=== PATIENT | female | born 1955 | race Caucasian/White ===

== ENCOUNTER 2018-03-27 07:22 | Day surgery (SDC) | payer OTHER ==
[~2018-03-27 07:22] MED LIST: XYLOCAINE 1% HCL 20 ML MDV ONE; Xylocaine 1% Vial 30 ML PF IJ ONE
[2018-03-27] MEDS ORDERED: Ketamine HCl 50 MG/ML IJ ONE (07:23)
[2018-03-27] MEDS ORDERED: DIPRIVAN 200 MG/20 ML IV ONE (07:23)
--- NOTE | 2018-03-27 07:32 | HP ---
DATE OF SURGERY: 03/27/2018 ANTICIPATED PROCEDURE: Port placement. HISTORY OF PRESENT ILLNESS: The patient has diagnosis of rectal cancer requiring access and presents for such. PAST MEDICAL HISTORY: ALLERGIES: NONE. MEDICATIONS: Proventil, Synthroid, Spiriva, Breo, Ambien. PAST SURGICAL HISTORY: Rectal cancer. SOCIAL HISTORY: Negative. FAMILY HISTORY: Negative. REVIEW OF SYSTEMS: Chronic obstructive pulmonary disease, emphysema. PHYSICAL EXAMINATION: VITAL SIGNS: Normal. CHEST: Clear. COR: Regular. IMPRESSION: Patient needs port for rectal cancer. PLAN: Port placement.
[2018-03-27] MEDS ORDERED: Lactated Ringers 1,000 ML IV SCH (08:00)
[2018-03-27] MEDS ORDERED: Versed 2 MG/2 ML Injection IV ONE (08:25)
[2018-03-27] MEDS ORDERED: CEFAZOLIN 2 GM-D5W BAG** 2 GM/50 ML ML IV SCH (08:30)
--- NOTE | 2018-03-27 10:36 | XRAY ---
4 seconds fluoroscopy time in surgery for port placement confirmed by Dr. Wallace French.
--- NOTE | 2018-03-27 11:09 | XRAY ---
Indication: Port-A-Cath placement. Intraoperative fluoroscopy was provided for 4 seconds. Portable chest demonstrates right Port-A-Cath with tip in the distal SVC without pneumothorax. Minimal bibasilar infiltrates versus atelectasis. Correlate with intraoperative findings/report.
[2018-03-27 11:30] VITALS: BP 130/73; PULSE 75; O2SAT 97
--- NOTE | 2018-03-28 09:36 | OP ---
SURGERY DATE/TIME: 03/27/2018 0949 PREOPERATIVE DIAGNOSIS: Inadequate access for chemotherapy. Rectal cancer. POSTOPERATIVE DIAGNOSIS: Inadequate access for chemotherapy. Rectal cancer. PROCEDURE: Tunnel port with fluoroscopic C-arm guidance. SURGEON: Wallace French M.D. ANESTHESIA: MAC. COMPLICATIONS: None. CONDITION: Stable. INDICATION: A patient requiring access. DESCRIPTION OF PROCEDURE: MAC sedation. Excellent anesthesia was present. Routine prep and drape. Time out per formed. Venipuncture obtained right subclavian. Catheter was placed. Port was placed at 23 cm. Good aspiration of low pressure venous blood. Flushed with heparinized saline. Secured with 3-0 Prolene, 3-0 Vicryl, 4-0 Vicryl and Steri-Strips. The patient tolerated the procedure satisfactorily.
== END 2018-03-27 11:32 | disposition home or self-care (01) ==
LOC: SDC 07:22
PROVIDERS: ATTEND Surgery
DX: C20 Malignant neoplasm of rectum (principal)
CPT/HCPCS: 71045; 77001; 94250; J0690; J1642; J2001; J2250; J2704; L0625

== ENCOUNTER 2019-06-05 06:50 | Emergency (ER) | payer MEDICARE, OTHER ==
[2019-06-05] MEDS ORDERED: Sodium Chloride 0.9% 1000 ML 1,000 ML IV STA (07:12)
[2019-06-05] MEDS ORDERED: Reglan 10 MG/2 ML IV ONE (07:12)
[2019-06-05] MEDS ORDERED: Reglan 10 MG/2 ML ONE (07:30)
[2019-06-05] MEDS ORDERED: Sodium Chloride 0.9% 1000 ML 1,000 ML ONE ×2 (07:31→08:57)
[2019-06-05 07:47] LABS: Hematocrit 42.6 % (35-47); Hemoglobin 14.3 gm/dl (12.0-16.0); Mean Cell Volume 94.7 fl (78-100); Mean Corpuscular Hemoglobin 31.8 pg (26-32); Mean Corpuscular Hgb Concent. 33.6 g/dl (32-36); Mean Platelet Volume 9.5 fl (6-9.5); Platelet Count 243 K/mm3 (150-450); White Blood Count 20.5 K/mm3 (4.0-10.5)
[2019-06-05 08:09] LABS: BAND 16 % (0.0-2.0); Lymphocytes 8 % (24-44); Monocyte 10 % (0.0-12.0); Neutrophils 66 % (36.0-66.0); Platelet Estimate NORMAL (NORMAL); Total Cells Counted 100
[2019-06-05 08:10] LABS: Absolute Neutrophil Ct (ANC) 17.06 (1.4-6.9)
[2019-06-05 08:11] LABS: Appearance CLEAR (CLEAR); Bacteria RARE /HPF (NEGATIVE); Bilirubin NEGATIVE (NEGATIVE); Blood NEGATIVE Ery/ul (0-5); Glucose NEGATIVE (NEGATIVE); Ketones NEGATIVE (NEGATIVE); Leukocyte Esterase TRACE (NEGATIVE); Nitrite NEGATIVE (NEGATIVE); Protein,Urine Dip NEGATIVE (Negative); Urobilinogen NEGATIVE mg/dL (0-1)
[2019-06-05 08:13] LABS: INR 1.23 (0.8-3.0); PROTIME 13.9 SECONDS (9.95-12.35)
[2019-06-05 08:19] LABS: ALBUMIN 4.1 g/dL (3.5-5.0); ALKALINE PHOSPHATASE 215 U/L (38-126); AMYLASE 55 U/L (30-110); ANION GAP 11.8 MEQ/L (5-15); BLOOD UREA NITROGEN 11 mg/dL (7-17); CHLORIDE 106 mmol/L (98-107); Calcium 9.6 mg/dL (8.4-10.2); Carbon Dioxide 25 mmol/L (22-30); Creatinine 1 0.79 mg/dL (0.52-1.04); Glucose 102 mg/dL (74-106); LIPASE 55 U/L (23-300); Potassium 3.4 mmol/L (3.5-5.1); SGOT/AST 23 U/L (14-36); SGPT/ALT 17 U/L (0-35); SODIUM 139 mmol/L (137-145); Total Protein 7.7 g/dL (6.3-8.2)
[2019-06-05 08:26] LABS: INFLUENZA A NEGATIVE (NEGATIVE); INFLUENZA B NEGATIVE (NEGATIVE); RESPIRATORY SYNCTIAL VIRUS NEGATIVE (Negative)
[2019-06-05] MEDS ORDERED: Sodium Chloride 0.9% 1000 ML 1,000 ML IV SCH (09:15)
[2019-06-05 09:19] LABS: 027 TOX PROD PRESUMPTIVE NEGATIVE (NEGATIVE); TOXIGENIC C. DIFF ORG POSITIVE (NEGATIVE)
--- NOTE | 2019-06-05 09:20 | XRAY ---
Indication: Diarrhea. Multiple contiguous axial images obtained through the abdomen and pelvis using 80 cc Isovue 370 contrast only. Comparison: None Lung bases demonstrates bibasilar fibrosis/scarring and a few calcified granulomas. No infiltrate or effusion. Heart is not enlarged. Noncontrasted stomach and bowel loops appear nonobstructed. Normal appendix. Mild fluid small and large bowel loops with mild wall thickening and fluid leveling favoring enterocolitis. Intact rectal anastomosis. No free fluid/air. Left cysts, largest 1.6 cm lower pole. 1.3 cm uterine calcified fibroid. Remaining liver, gallbladder, pancreas, spleen, adrenal glands, kidneys, ureters, bladder, and uterus appear unremarkable. Mild scattered aortoiliac calcifications. No AAA or pathologic retroperitoneal lymphadenopathy. Osseous structures intact with minimal degenerative changes throughout the spine. Impression: 1. Mild fluid distended small/large bowel loops with wall thickening and fluid leveling favoring enterocolitis. 2. Left renal cysts, calcified uterine fibroid, and evidence for old granulomatous disease. 3. Remaining CT abdomen/pelvis with contrast exam is negative.
[2019-06-05 09:33] VITALS: BP 110/68
--- NOTE | 2019-06-05 09:43 | ERPHSYRPT ---
- History of Present Illness Time Seen by Provider: 06/05/19 07:10 Patient Subjective Stated Complaint: Diarrhea Triage Nursing Assessment: Patient brought back to ED via w/c and transferred to bed per self. Patient A+O 3. Patient's skin pink, warm and dry. Patient complains of diarrhea x 30 times in a 12 hour period. Abdomen soft and round with BS X 4. Patient denies pain or discomofort. Patient states she is currently taking Augmentin 875/125mg with few days left. Physician History: patient is a 64-year-old white female is known Augmentin for bronchitis 20 hours ago started having liquid stools approximately 30 and 12 hours. She denies any pain no gross blood yellow mucousy foul smelling stools. Timing/Duration: today Activities at Onset: none Quality: cramping, pressure Allergies/Adverse Reactions: No Known Drug Allergies Allergy (Verified 06/05/19 06:55) Home Medications: Albuterol 2.5 mg/3 ml Neb [Proventil 2.5 mg/3 ml Neb] 2.5 mg IH Q6HPRN PRN 03/26/18 [History] Albuterol Sulfate [Proventil Hfa] 6.7 gm IH Q4HPRN PRN 03/26/18 [History] Fluticasone/Vilanterol [Breo Ellipta 100-25 Mcg INH] 1 each IH DAILY 03/26/18 [ History] Levothyroxine Sodium 112 Mcg [Synthroid 112 Mcg] 100 mcg PO DAILY 03/26/18 [History] Tiotropium [place] Inhaler [Spiriva 18 Mcg/Cap Inhaler] 1 puff IH DAILY [History] Gabapentin [Neurontin] 300 mg PO TID 11/27/18 [History] Hydroxychloroquine Sulfate [Plaquenil] 200 mg PO BID 02/24/19 [History] Hx Influenza Vaccination/Date Given: Yes Hx Pneumococcal Vaccination/Date Given: No Immunizations Up to Date: Yes - Review of Systems Constitutional: No Fever, No Chills Eyes: No Symptoms Ears, Nose, & Throat: No Symptoms Respiratory: No Cough, No Dyspnea Cardiac: No Chest Pain, No Edema, No Syncope Abdominal/Gastrointestinal: Diarrhea, No Abdominal Pain, No Nausea, No Vomiting Genitourinary Symptoms: No Dysuria Musculoskeletal: No Back Pain, No Neck Pain Skin: No Rash Neurological: No Dizziness, No Focal Weakness, No Sensory Changes Psychological: No Symptoms Endocrine: No Symptoms All Other Systems: Reviewed and Negative - Past Medical History Pertinent Past Medical History: Yes Neurological History: No Pertinent History ENT History: No Pertinent History Cardiac History: No Pertinent History Respiratory History: COPD, Emphysema Endocrine Medical History: Hypothyroidism Musculoskeletal History: Rheumatoid Arthritis GI Medical History: Polyps History: No Pertinent History Psycho-Social History: No Pertinent History Female Reproductive Disorders: No Pertinent History Other Medical History: colon cancer with lymphnodes, 2 L nc as needed - Past Surgical History Past Surgical History: Yes Neuro Surgical History: No Pertinent History Cardiac: No Pertinent History Respiratory: No Pertinent History Gastrointestinal: Colon Resection Genitourinary: Other Musculoskeletal: No Pertinent History Female Surgical History: Tubal Ligation, Other Other Surgical History: Bladder sling, right ovary removed, polyps removed from throat. - Social History Smoking Status: Never smoker Exposure to second hand smoke: No Drug Use: none Patient Lives Alone: No - Female History Hx Last Menstrual Period: menopausal Hx Now: No - Nursing Vital Signs Nursing Vital Signs: Initial Vital Signs Pulse Rate 78 06/05/19 06:57 Respiratory Rate 20 06/05/19 06:57 Blood Pressure 124/79 06/05/19 06:57 O2 Sat by Pulse Oximetry 91 L 06/05/19 06:57 Pain Scale Pain Intensity 0 - Physical Exam General Appearance: no apparent distress, moderate distress, alert Eye Exam: PERRL/EOMI, eyes nml inspection Ears, Nose, Throat Exam: normal ENT inspection, pharynx normal, moist mucous membranes Neck Exam: normal inspection, non-tender, supple, full range of motion Respiratory Exam: normal breath sounds, lungs clear, No respiratory distress Cardiovascular Exam: regular rate/rhythm, normal heart sounds Gastrointestinal/Abdomen Exam: soft, tenderness, No mass Back Exam: normal inspection, normal range of motion, No CVA tenderness, No vertebral tenderness Extremity Exam: normal inspection, normal range of motion, pelvis stable Neurologic Exam: alert, oriented x 3, cooperative, normal mood/affect, nml cerebellar function, sensation nml, No motor deficits Skin Exam: normal color, warm, dry SpO2: 95 Ordered Tests: Active Orders 24 hr Category Date Time Status IV Insertion STAT Care 06/05/19 07:12 Active ABDOMEN AND PELVIS W CONTRAST [CT] Stat Exams 06/05/19 07:13 Completed AMYLASE Stat Lab 06/05/19 07:30 Completed BLOOD CULTURE Stat Lab 06/05/19 07:30 Received CBC W DIFF Stat Lab 06/05/19 07:30 Completed CMP Stat Lab 06/05/19 07:30 Completed LIPASE Stat Lab 06/05/19 07:30 Completed Lactic Acid Stat Lab 06/05/19 07:55 Completed Manual Differential NC Stat Lab 06/05/19 07:30 Completed Occult Blood, Other Screening Stat Lab 06/05/19 08:15 Completed PROTIME WITH INR Stat Lab 06/05/19 07:30 Completed UA W/RFX UR CULTURE Stat Lab 06/05/19 07:13 Completed Medication Summary Generic Name Dose Route Start Last Admin Trade Name Freq PRN Reason Stop Dose Admin Sodium Chloride 1,000 mls @ 999 mls/hr 06/05/19 09:15 06/05/19 09:03 Sodium Chloride 0.9% 1000 Ml IV 07/05/19 09:14 999 mls/hr .Q1H1M ALYSSA Administration Discontinued Medications Generic Name Dose Route Start Last Admin Trade Name Freq PRN Reason Stop Dose Admin Sodium Chloride 1,000 mls @ 999 mls/hr 06/05/19 07:12 06/05/19 08:51 Sodium Chloride 0.9% 1000 Ml IV 06/05/19 08:12 Infused .Q1H1M STA Infusion Sodium Chloride Confirm 06/05/19 07:31 Sodium Chloride 0.9% 1000 Ml Administered 06/05/19 07:32 Dose 1,000 mls @ ud .ROUTE .STK-MED ONE Sodium Chloride Confirm 06/05/19 08:57 Sodium Chloride 0.9% 1000 Ml Administered 06/05/19 08:58 Dose 1,000 mls @ ud .ROUTE .STK-MED ONE Metoclopramide HCl 10 mg 06/05/19 07:12 06/05/19 07:33 Reglan 10 Mg/2 Ml IV 06/05/19 07:13 10 mg STAT ONE Administration Metoclopramide HCl Confirm 06/05/19 07:30 Reglan 10 Mg/2 Ml Administered 06/05/19 07:31 Dose 10 mg .ROUTE .STK-MED ONE Lab/Rad Data: Laboratory Result Diagrams 06/05/19 07:30 06/05/19 07:30 Laboratory Results 06/05/19 06/05/19 06/05/19 Range/Units 08:35 08:15 07:55 WBC (4.0-10.5) K/mm3 RBC (4.1-5.4) M/mm3 Hgb (12.0-16.0) gm/dl Hct (35-47) % MCV (78-100) fl MCH (26-32) pg MCHC (32-36) g/dl RDW (11.5-14.0) % Plt Count (150-450) K/mm3 MPV (6-9.5) fl Absolute Granulocytes (1.4-6.9) Segmented Neutrophils (36.0-66.0) % Band Neutrophils (0.0-2.0) % Lymphocytes (Manual) (24-44) % Monocytes (Manual) (0.0-12.0) % Platelet Estimate (NORMAL) RBC Morphology PT (9.95-12.35) SECONDS INR (0.8-3.0) Sodium (137-145) mmol/L Potassium (3.5-5.1) mmol/L Chloride (98-107) mmol/L Carbon Dioxide (22-30) mmol/L Anion Gap (5-15) MEQ/L BUN (7-17) mg/dL Creatinine (0.52-1.04) mg/dL Estimated GFR ML/MIN Glucose (74-106) mg/dL Lactic Acid 0.8 (0.4-2.0) Calcium (8.4-10.2) mg/dL Total Bilirubin (0.2-1.3) mg/dL AST (14-36) U/L ALT (0-35) U/L Alkaline Phosphatase (38-126) U/L Serum Total Protein (6.3-8.2) g/dL Albumin (3.5-5.0) g/dL Amylase (30-110) U/L Lipase (23-300) U/L Urine Color (YELLOW) Urine Appearance (CLEAR) Urine pH (5-6) Ur Specific [place] (1.005-1.025) Urine Protein (Negative) Urine Ketones (NEGATIVE) Urine Blood (0-5) Johan/ul Urine Nitrite (NEGATIVE) Urine Bilirubin (NEGATIVE) Urine Urobilinogen (0-1) mg/dL Ur Leukocyte Esterase (NEGATIVE) Urine WBC (Auto) (0-5) /HPF Urine RBC (Auto) (0-2) /HPF U Epithel Cells (Auto) (FEW) /HPF Urine Bacteria (Auto) (NEGATIVE) /HPF Urine Culture Reflexed (NO) Urine Glucose (NEGATIVE) mg/dL Stool Occult Blood POSITIVE A (Negative) C. difficile Screen POSITIVE (NEGATIVE) C.difficile 027-NAP1-B1 PRESUMPTIVE NEGATIVE (NEGATIVE) Influenza Type A Ag (NEGATIVE) Influenza Type B Ag (NEGATIVE) RSV (PCR) (Negative) 06/05/19 06/05/19 06/05/19 Range/Units 07:38 07:30 07:30 WBC (4.0-10.5) K/mm3 RBC (4.1-5.4) M/mm3 Hgb (12.0-16.0) gm/dl Hct (35-47) % MCV (78-100) fl MCH (26-32) pg MCHC (32-36) g/dl RDW (11.5-14.0) % Plt Count (150-450) K/mm3 MPV (6-9.5) fl Absolute Granulocytes (1.4-6.9) Segmented Neutrophils (36.0-66.0) % Band Neutrophils (0.0-2.0) % Lymphocytes (Manual) (24-44) % Monocytes (Manual) (0.0-12.0) % Platelet Estimate (NORMAL) RBC Morphology PT 13.9 H (9.95-12.35) SECONDS INR 1.23 (0.8-3.0) Sodium 139 (137-145) mmol/L Potassium 3.4 L (3.5-5.1) mmol/L Chloride 106 (98-107) mmol/L Carbon Dioxide 25 (22-30) mmol/L Anion Gap 11.8 (5-15) MEQ/L BUN 11 (7-17) mg/dL Creatinine 0.79 (0.52-1.04) mg/dL Estimated GFR > 60.0 ML/MIN Glucose 102 (74-106) mg/dL Lactic Acid (0.4-2.0) Calcium 9.6 (8.4-10.2) mg/dL Total Bilirubin 0.90 (0.2-1.3) mg/dL AST 23 (14-36) U/L ALT 17 (0-35) U/L Alkaline Phosphatase 215 H (38-126) U/L Serum Total Protein 7.7 (6.3-8.2) g/dL Albumin 4.1 (3.5-5.0) g/dL Amylase 55 (30-110) U/L Lipase 55 (23-300) U/L Urine Color (YELLOW) Urine Appearance (CLEAR) Urine pH (5-6) Ur Specific [place] (1.005-1.025) Urine Protein (Negative) Urine Ketones (NEGATIVE) Urine Blood (0-5) Johan/ul Urine Nitrite (NEGATIVE) Urine Bilirubin (NEGATIVE) Urine Urobilinogen (0-1) mg/dL Ur Leukocyte Esterase (NEGATIVE) Urine WBC (Auto) (0-5) /HPF Urine RBC (Auto) (0-2) /HPF U Epithel Cells (Auto) (FEW) /HPF Urine Bacteria (Auto) (NEGATIVE) /HPF Urine Culture Reflexed (NO) Urine Glucose (NEGATIVE) mg/dL Stool Occult Blood (Negative) C. difficile Screen (NEGATIVE) C.difficile 027-NAP1-B1 (NEGATIVE) Influenza Type A Ag NEGATIVE (NEGATIVE) Influenza Type B Ag NEGATIVE (NEGATIVE) RSV (PCR) NEGATIVE (Negative) 06/05/19 06/05/19 Range/Units 07:30 07:13 WBC 20.5 H (4.0-10.5) K/mm3 RBC 4.50 (4.1-5.4) M/mm3 Hgb 14.3 (12.0-16.0) gm/dl Hct 42.6 (35-47) % MCV 94.7 (78-100) fl MCH 31.8 (26-32) pg MCHC 33.6 (32-36) g/dl RDW 13.0 (11.5-14.0) % Plt Count 243 (150-450) K/mm3 MPV 9.5 (6-9.5) fl Absolute Granulocytes 17.06 H (1.4-6.9) Segmented Neutrophils 66 (36.0-66.0) % Band Neutrophils 16 H (0.0-2.0) % Lymphocytes (Manual) 8 L (24-44) % Monocytes (Manual) 10 (0.0-12.0) % Platelet Estimate NORMAL (NORMAL) RBC Morphology NORMAL PT (9.95-12.35) SECONDS INR (0.8-3.0) Sodium (137-145) mmol/L Potassium (3.5-5.1) mmol/L Chloride (98-107) mmol/L Carbon Dioxide (22-30) mmol/L Anion Gap (5-15) MEQ/L BUN (7-17) mg/dL Creatinine (0.52-1.04) mg/dL Estimated GFR ML/MIN Glucose (74-106) mg/dL Lactic Acid (0.4-2.0) Calcium (8.4-10.2) mg/dL Total Bilirubin (0.2-1.3) mg/dL AST (14-36) U/L ALT (0-35) U/L Alkaline Phosphatase (38-126) U/L Serum Total Protein (6.3-8.2) g/dL Albumin (3.5-5.0) g/dL Amylase (30-110) U/L Lipase (23-300) U/L Urine Color YELLOW (YELLOW) Urine Appearance CLEAR (CLEAR) Urine pH 7.0 (5-6) Ur Specific [place] 1.010 (1.005-1.025) Urine Protein NEGATIVE (Negative) Urine Ketones NEGATIVE (NEGATIVE) Urine Blood NEGATIVE (0-5) Johan/ul Urine Nitrite NEGATIVE (NEGATIVE) Urine Bilirubin NEGATIVE (NEGATIVE) Urine Urobilinogen NEGATIVE (0-1) mg/dL Ur Leukocyte Esterase TRACE (NEGATIVE) Urine WBC (Auto) 11-15 (0-5) /HPF Urine RBC (Auto) NONE (0-2) /HPF U Epithel Cells (Auto) NONE (FEW) /HPF Urine Bacteria (Auto) RARE (NEGATIVE) /HPF Urine Culture Reflexed NO (NO) Urine Glucose NEGATIVE (NEGATIVE) mg/dL Stool Occult Blood (Negative) C. difficile Screen (NEGATIVE) C.difficile 027-NAP1-B1 (NEGATIVE) Influenza Type A Ag (NEGATIVE) Influenza Type B Ag (NEGATIVE) RSV (PCR) (Negative) - Departure Departure Disposition: Home Clinical Impression: C. difficile colitis Condition: Stable Critical Care Time: No Referrals: HETAL ADAMS [Primary Care Provider] - Instructions: Clostridium difficile Additional Instructions: Clostridium difficile Plan of Treatment: we discussed the case with Dr. nobles the patient's primary care physician he recommended treatment as an outpatient he will follow her up in the office in one week. Prescriptions: Metronidazole 500 mg [Flagyl 500 MG] 500 mg PO TID 14 Days #42 tablet Vancomycin HCl [Vancomycin HCl Capsule] 125 mg PO QID 143 Days #56 capsule
[2019-06-05 10:40] VITALS: PULSE 80; O2SAT 98
[2019-06-08 13:57] LABS: Source: Feces
[2019-06-08 14:34] LABS: Giardia Antigen EIA Negative (Negative)
== END 2019-06-05 10:40 | disposition home or self-care (01) ==
LOC: ED 06:50
DX: A04.72 Enterocolitis due to Clostridium difficile, not specified as recurrent (principal)
CPT/HCPCS: 36000; 36415; 74177; 80053; 81001; 82150; 82272; 83605; 83690; 85025; 85610; 87040; 87045; 87046; 87177; 87209; 87335; 87493; 87631; 96360; 96374; 99284

== ENCOUNTER 2019-11-04 15:11 | Emergency (ER) | payer MEDICARE, OTHER ==
--- NOTE | 2019-11-04 15:15 | ERPHSYRPT ---
- History of Present Illness Time Seen by Provider: 11/04/19 15:14 Historian: patient, family Exam Limitations: no limitations Physician History: Is a 64-year-old white female who is oxygen dependent COPD and presents with left-sided chest pain that is described as sharp and nonradiating. Patient stated hurts to take a deep breath in. Pain began today. Had no fever. Patient states she has a chronic cough and chronic shortness of breath. She uses 2 L of oxygen via nasal cannula at home. Patient has no nausea vomiting or diarrhea. Timing/Duration: yesterday, worse Quality: sharpness, stabbing Location: other (Under left breast. Superficial and nonradiating) Chest Pain Radiation: no radiation Severity of Pain-Max: moderate Severity of Pain-Current: moderate Modifying Factors: Improves With: nothing Associated Symptoms: cough (Chronic), hurts to breathe, No nausea, No vomiting, No abdominal pain, No diaphoresis, No fever, No weakness, No headache, No dizziness Prior Chest Pain/Cardiac Workup: no prior cardiac workup Nitro Today/Relief: no nitro taken today Aspirin Treatment Today: no aspirin today Allergies/Adverse Reactions: No Known Drug Allergies Allergy (Verified 11/04/19 15:26) Home Medications: Albuterol 2.5 mg/3 ml Neb [Proventil 2.5 mg/3 ml Neb] 2.5 mg IH Q6HPRN PRN 03/26/18 [History] Albuterol Sulfate [Proventil Hfa] 6.7 gm IH Q4HPRN PRN 03/26/18 [History] Fluticasone/Vilanterol [Breo Ellipta 100-25 Mcg INH] 1 each IH DAILY 03/26/18 [ History] Levothyroxine Sodium 112 Mcg [Synthroid 112 Mcg] 100 mcg PO DAILY 03/26/18 [History] Tiotropium Victoria Inhaler [Spiriva 18 Mcg/Cap Inhaler] 1 puff IH DAILY [History] Gabapentin [Neurontin] 300 mg PO TID 11/27/18 [History] Hydroxychloroquine Sulfate [Plaquenil] 200 mg PO BID 02/24/19 [History] Potassium Chloride 10 Meq Tab* [Klor Con 10 MEQ] 10 meq PO DAILY 06/25/19 [ History] Zolpidem Tartrate [Ambien] 5 mg PO DAILY PRN PRN 11/04/19 [History] Hx Influenza Vaccination/Date Given: Yes Hx Pneumococcal Vaccination/Date Given: No Travel Risk - International Travel Have you traveled outside of the country in past 3 weeks: No Have you or anyone close to you been diagnosed with or: No Do your reside in a community with a known COVID-19 case?: Yes If Yes where:: [facility] - Coronavirus Screening Has patient experienced Coronavirus symptoms: No - Review of Systems Constitutional: No Symptoms Eyes: No Symptoms Ears, Nose, & Throat: No Symptoms Respiratory: Cough, Dyspnea (Chronic), Other (The symptoms have not worsened) Cardiac: Chest Pain (Left-sided chest pain underneath the left breast) Abdominal/Gastrointestinal: No Symptoms Genitourinary Symptoms: No Symptoms Musculoskeletal: No Symptoms Skin: No Symptoms Neurological: No Symptoms Psychological: No Symptoms Endocrine: No Symptoms Hematologic/Lymphatic: No Symptoms Immunological/Allergic: No Symptoms All Other Systems: Reviewed and Negative - Past Medical History Pertinent Past Medical History: Yes Neurological History: No Pertinent History ENT History: No Pertinent History Cardiac History: No Pertinent History Respiratory History: COPD, Emphysema Endocrine Medical History: Hypothyroidism Musculoskeletal History: Rheumatoid Arthritis GI Medical History: Polyps History: No Pertinent History Psycho-Social History: No Pertinent History Female Reproductive Disorders: No Pertinent History Other Medical History: colon cancer with lymphnodes, 2 L nc as needed. C-diff - Past Surgical History Past Surgical History: Yes Neuro Surgical History: No Pertinent History Cardiac: No Pertinent History Respiratory: No Pertinent History Gastrointestinal: Colon Resection Genitourinary: Other Musculoskeletal: No Pertinent History Female Surgical History: Tubal Ligation, Other Other Surgical History: Bladder sling, right ovary removed, polyps removed from throat. - Social History Smoking Status: Never smoker Exposure to second hand smoke: No Drug Use: none Patient Lives Alone: No - Nursing Vital Signs Nursing Vital Signs: Initial Vital Signs Pulse Rate 92 H 11/04/19 15:13 Blood Pressure 160/89 11/04/19 15:13 O2 Sat by Pulse Oximetry 100 11/04/19 15:13 Pain Scale Pain Intensity 4 - Physical Exam General Appearance: no apparent distress, alert, anxiety Eye Exam: PERRL/EOMI, eyes nml inspection Ears, Nose, Throat Exam: normal ENT inspection, moist mucous membranes Neck Exam: normal inspection, non-tender, supple, full range of motion Respiratory Exam: normal breath sounds, chest tenderness (Left side underneath her breast), lungs clear, airway intact, No respiratory distress Cardiovascular Exam: regular rate/rhythm, normal heart sounds, normal peripheral pulses Gastrointestinal/Abdomen Exam: soft, normal bowel sounds, No tenderness Pelvic Exam: not done Rectal Exam: not done Back Exam: normal inspection, normal range of motion, No CVA tenderness, No vertebral tenderness Extremity Exam: normal inspection, normal range of motion, pelvis stable Neurologic Exam: alert, oriented x 3, cooperative, communications writer II-XII nml as tested, normal mood/affect, nml cerebellar function, nml station & gait Skin Exam: normal color, warm, dry Lymphatic Exam: No adenopathy SpO2 Interpretation: normal O2 Delivery: Room Air - Course EKG Interpreted by Me: RATE (89), Sinus Rhythm, NORMAL AXIS, NORMAL INTERVALS, NORMAL QRS, Other (No acute ischemic changes. No parison EKG available) Ordered Tests: Active Orders 24 hr Category Date Time Status Jewel Stringer STAT Care 11/04/19 15:33 Active EKG-ER Only STAT Care 11/04/19 15:33 Active IV Insertion STAT Care 11/04/19 15:33 Active Pulse Oximetry (ED) STAT Care 11/04/19 15:33 Active CHEST 1 VIEW (PORTABLE) Stat Exams 11/04/19 15:35 Completed CHEST WITH CONTRAST [CT] Stat Exams 11/04/19 17:14 Taken CBC W DIFF Stat Lab 11/04/19 16:05 Completed CMP Stat Lab 11/04/19 16:05 Completed D-DIMER QUANTITATIVE Stat Lab 11/04/19 16:05 Completed NT PRO BNP Stat Lab 11/04/19 16:05 Completed PROTIME WITH INR Stat Lab 11/04/19 16:05 Completed TROPONIN Q3H Lab 11/04/19 16:05 Completed TROPONIN Q3H Lab 11/04/19 18:45 Ordered TROPONIN Q3H Lab 11/04/19 21:45 Ordered TROPONIN Q3H Lab 11/05/19 00:45 Ordered TROPONIN Q3H Lab 11/05/19 03:45 Ordered Medication Summary Generic Name Dose Route Start Last Admin Trade Name Freq PRN Reason Stop Dose Admin Hydrocodone Bitart/Acetaminophen 10 ml 11/04/19 18:24 Hydrocodone-Acetamin 2.5-108/5 Ml Solution PO 11/04/19 18:25 STAT STA Ceftriaxone Sodium/Dextrose 1 g in 50 mls @ 100 mls/hr 11/04/19 18:20 Rocephin 1 Gm-D5w 50 Ml Bag IV 11/04/19 18:49 STAT STA Discontinued Medications Generic Name Dose Route Start Last Admin Trade Name Caseyq PRN Reason Stop Dose Admin Aspirin 162 mg 11/04/19 15:33 11/04/19 16:00 Baby Aspirin 81 Mg Chew PO 11/04/19 15:34 Not Given STAT ONE Aspirin 324 mg 11/04/19 15:51 11/04/19 15:54 Baby Aspirin 81 Mg Chew PO 11/04/19 15:52 324 mg STAT ONE Administration Sodium Chloride 500 mls @ 500 mls/hr 11/04/19 17:14 11/04/19 17:56 Sodium Chloride 0.9% 500 Ml IV 11/04/19 18:13 500 mls/hr .Q1H ONE Administration Sodium Chloride Confirm 11/04/19 17:52 Sodium Chloride 0.9% 500 Ml Administered 11/04/19 17:53 Dose 500 mls @ ud IV .STK-MED ONE Lab/Rad Data: Laboratory Result Diagrams 11/04/19 16:05 11/04/19 16:05 Laboratory Results 11/04/19 11/04/19 11/04/19 Range/Units 16:05 16:05 16:05 WBC (4.0-10.5) K/mm3 RBC (4.1-5.4) M/mm3 Hgb (12.0-16.0) gm/dl Hct (35-47) % MCV (78-100) fl MCH (26-32) pg MCHC (32-36) g/dl RDW (11.5-14.0) % Plt Count (150-450) K/mm3 MPV (7.5-11.0) fl Gran % (36.0-66.0) % Eos # (Auto) (0-0.5) Absolute Lymphs (auto) (1.0-4.6) Absolute Monos (auto) (0.0-1.3) Lymphocytes % (24.0-44.0) % Monocytes % (0.0-12.0) % Eosinophils % (0.00-5.0) % Basophils % (0.0-0.4) % Absolute Granulocytes (1.4-6.9) Basophils # (0-0.4) PT 11.7 (9.95-12.35) SECONDS INR 1.03 (0.8-3.0) D-Dimer 830 H* (215-500) ng/mL Sodium 142 (137-145) mmol/L Potassium 4.1 (3.5-5.1) mmol/L Chloride 105 (98-107) mmol/L Carbon Dioxide 29 (22-30) mmol/L Anion Gap 12.1 (5-15) MEQ/L BUN 14 (7-17) mg/dL Creatinine 0.71 (0.52-1.04) mg/dL Estimated GFR > 60.0 ML/MIN Glucose 99 (74-106) mg/dL Calcium 9.5 (8.4-10.2) mg/dL Total Bilirubin 0.70 (0.2-1.3) mg/dL AST 32 (14-36) U/L ALT 19 (0-35) U/L Alkaline Phosphatase 217 H (38-126) U/L Troponin I < 0.012 (0.000-0.034) ng/mL NT-Pro-B Natriuret Pep 71.9 (0-900) pg/mL Serum Total Protein 7.5 (6.3-8.2) g/dL Albumin 4.2 (3.5-5.0) g/dL 11/04/19 Range/Units 16:05 WBC 6.2 (4.0-10.5) K/mm3 RBC 4.24 (4.1-5.4) M/mm3 Hgb 13.8 (12.0-16.0) gm/dl Hct 41.9 (35-47) % MCV 98.8 (78-100) fl MCH 32.5 H (26-32) pg MCHC 32.9 (32-36) g/dl RDW 12.7 (11.5-14.0) % Plt Count 255 (150-450) K/mm3 MPV 9.3 (7.5-11.0) fl Gran % 71.5 H (36.0-66.0) % Eos # (Auto) 0.28 (0-0.5) Absolute Lymphs (auto) 0.92 L (1.0-4.6) Absolute Monos (auto) 0.54 (0.0-1.3) Lymphocytes % 14.7 L (24.0-44.0) % Monocytes % 8.7 (0.0-12.0) % Eosinophils % 4.5 (0.00-5.0) % Basophils % 0.6 (0.0-0.4) % Absolute Granulocytes 4.46 (1.4-6.9) Basophils # 0.04 (0-0.4) PT (9.95-12.35) SECONDS INR (0.8-3.0) D-Dimer (215-500) ng/mL Sodium (137-145) mmol/L Potassium (3.5-5.1) mmol/L Chloride (98-107) mmol/L Carbon Dioxide (22-30) mmol/L Anion Gap (5-15) MEQ/L BUN (7-17) mg/dL Creatinine (0.52-1.04) mg/dL Estimated GFR ML/MIN Glucose (74-106) mg/dL Calcium (8.4-10.2) mg/dL Total Bilirubin (0.2-1.3) mg/dL AST (14-36) U/L ALT (0-35) U/L Alkaline Phosphatase (38-126) U/L Troponin I (0.000-0.034) ng/mL NT-Pro-B Natriuret Pep (0-900) pg/mL Serum Total Protein (6.3-8.2) g/dL Albumin (3.5-5.0) g/dL - Progress Progress: improved, re-examined Air Movement: good Progress Note: 11/04/19 17:16 Mild right infiltrate versus atelectasis on the chest x-ray 11/04/19 18:[address] with IV contrast of the chest shows no acute pulmonary emboli. No other acute findings noted. Blood Culture(s) Obtained: No Antibiotics given: Yes, No Counseled pt/family regarding: lab results, diagnosis, need for follow-up, rad results - Departure Departure Disposition: Home Clinical Impression: Infiltrate of lung present on chest x-ray, Left-sided chest wall pain Condition: Stable Critical Care Time: No Referrals: HETAL ADAMS [Primary Care Provider] - Additional Instructions: Take your medications as prescribed. Follow-up with your primary care physician for persistent symptoms. Continue taking your probiotics as you have been. Prescriptions: Azithromycin 250 mg [Zithromax 250 MG TABLET] 250 mg PO ZPACK #6 tablet Hydrocodone Bit/Acetaminophen [Hydrocodone-Acetaminophen Soln] 10 ml PO Q6H # 120 ml
[2019-11-04] MEDS ORDERED: BABY ASPIRIN 81 MG CHEW PO ONE ×2 (15:33→15:51)
[2019-11-04 16:16] LABS: Absolute Neutrophil Ct (ANC) 4.46 (1.4-6.9); BASOPHIL % 0.6 % (0.0-0.4); Basophil (Absolute #) 0.04 (0-0.4); Eosinophil % 4.5 % (0.00-5.0); Eosinophil (Absolute #) 0.28 (0-0.5); Hematocrit 41.9 % (35-47); Hemoglobin 13.8 gm/dl (12.0-16.0); Lymphocyte (Absolute #) 0.92 (1.0-4.6); Lymphocytes % 14.7 % (24.0-44.0); Mean Cell Volume 98.8 fl (78-100); Mean Corpuscular Hemoglobin 32.5 pg (26-32); Mean Corpuscular Hgb Concent. 32.9 g/dl (32-36); Mean Platelet Volume 9.3 fl (7.5-11.0); Monocyte (Absolute #) 0.54 (0.0-1.3); Monocytes % 8.7 % (0.0-12.0); Neutrophil % 71.5 % (36.0-66.0); Platelet Count 255 K/mm3 (150-450); Red Blood Count 4.24 M/mm3 (4.1-5.4); Red Cell Distribution Width 12.7 % (11.5-14.0); White Blood Count 6.2 K/mm3 (4.0-10.5)
[2019-11-04 16:21] LABS: INR 1.03 (0.8-3.0); PROTIME 11.7 SECONDS (9.95-12.35)
[2019-11-04 16:34] LABS: ALBUMIN 4.2 g/dL (3.5-5.0); ALKALINE PHOSPHATASE 217 U/L (38-126); ANION GAP 12.1 MEQ/L (5-15); BLOOD UREA NITROGEN 14 mg/dL (7-17); CHLORIDE 105 mmol/L (98-107); Calcium 9.5 mg/dL (8.4-10.2); Carbon Dioxide 29 mmol/L (22-30); Creatinine 1 0.71 mg/dL (0.52-1.04); Glucose 99 mg/dL (74-106); NT PRO BNP 71.9 pg/mL (0-900); Potassium 4.1 mmol/L (3.5-5.1); SGOT/AST 32 U/L (14-36); SGPT/ALT 19 U/L (0-35); SODIUM 142 mmol/L (137-145); Total Protein 7.5 g/dL (6.3-8.2)
--- NOTE | 2019-11-04 16:46 | XRAY ---
Indication: Chest pain and cough. Comparison: March 27, 2018. Portable chest again demonstrates mild right base infiltrate versus atelectasis. Remaining heart and lungs unremarkable with stable right Port-A-Cath. Bony thorax intact again with mild osteopenia and degenerative changes.
[2019-11-04] MEDS ORDERED: Sodium Chloride 0.9% 500 ML 500 ML IV ONE ×2 (17:14→17:52)
[2019-11-04] MEDS ORDERED: ROCEPHIN 1 Gm-D5w 50 ml Bag** 1 G/50 ML IVPB IV STA (18:20)
[2019-11-04] MEDS ORDERED: HYDROCODONE-ACETAMIN 2.5-108/5 ML SOLUTION PO STA (18:24)
[2019-11-04] MEDS ORDERED: HYDROCODONE-ACETAMIN 2.5-108/5 ML SOLUTION ONE (18:52)
[2019-11-04] MEDS ORDERED: ROCEPHIN 1 Gm-D5w 50 ml Bag** 1 G/50 ML IVPB IV ONE (18:52)
[2019-11-04 19:51] VITALS: BP 127/85; PULSE 83; O2SAT 97
--- NOTE | 2019-11-05 08:38 | XRAY ---
Indication: Left chest pain. COPD. Elevated d-dimer. Multiple contiguous axial images obtained through the chest using 80 cc Isovue 370 contrast and PE protocol. Comparison: October 03, 2005. There is satisfactory opacification of the pulmonary arteries to include the lobar and segmental branches. No filling defect or pulmonary embolus. Heart is not enlarged. Aorta is normal in course and caliber. New right Port-A-Cath with tip in the SVC. There remains a few tiny mediastinal/hilar calcified nodes. No pathologic mediastinal/hilar lymphadenopathy. Examination of the lung parenchyma demonstrates centrilobular emphysema, bilateral mid to lower lung atelectasis/scarring, mild bronchiectasis, and and a few scattered tiny calcified granulomas. No suspicious pulmonary mass, infiltrate, or effusion. Bony thorax intact with minimal degenerative changes throughout the spine. Limited upper abdomen demonstrates 1 cm gallstone and 1.5 cm left mid renal cyst. Impression: 1. Negative pulmonary embolus. No acute cardiopulmonary abnormalities. 2. Pulmonary emphysema, scattered atelectasis/scarring, bronchiectasis, and evidence for old granulomatous disease. 3. Incidental gallstone and left renal cyst.
== END 2019-11-04 19:53 | disposition home or self-care (01) ==
LOC: ED 15:11
DX: R91.8 Other nonspecific abnormal finding of lung field (principal); R07.89 Other chest pain; J44.9 Chronic obstructive pulmonary disease, unspecified; Z99.81 Dependence on supplemental oxygen; Z79.899 Other long term (current) drug therapy
CPT/HCPCS: 36415; 71045; 71260; 80053; 83880; 84484; 85025; 85379; 85610; 93005; 93041; 94760; 96360; 96365; 99284; J0696; A9270-GY

== ENCOUNTER 2020-05-05 08:59 | Day surgery (SDC) | payer MEDICARE, OTHER ==
--- NOTE | 2020-04-29 10:13 | HP ---
DATE: 05/05/2020 HISTORY OF PRESENT ILLNESS: Patient presents with an undesired port. She has had colorectal cancer in the past. She has been cleared by her oncologist, Dr. Pinedo, for removal. Her port is low in her right upper breast. Has been there since 2018. PAST MEDICAL HISTORY: Hypothyroidism, asthma, arthritis, neuropathy, chronic obstructive pulmonary disease, emphysema, Raynaud's, tricuspid valve regurgitation, rheumatoid arthritis. ALLERGIES: NONE. CURRENT MEDICATIONS: Synthroid, Breo Ellipta, gabapentin, and Plaquenil. SURGERIES: Low anterior colon resection. SOCIAL HISTORY: None. FAMILY HISTORY: Cancer. REVIEW OF SYSTEMS: CONSTITUTIONAL: Denies fever or chills. CHEST: Denies shortness of breath. CVS: Denies chest pain. ABDOMEN: Denies abdomen pain, nausea, vomiting, diarrhea, constipation, or rectal bleeding. INTEGUMENTARY: Negative. PHYSICAL EXAMINATION: GENERAL: No acute distress. CHEST: Nonlabored, no shortness of breath. CARDIO: Regular rate and rhythm. ABDOMEN: Soft, nontender to palpation. EXTREMITIES: No edema. NEURO: Alert. PSYCH: Appropriate. IMPRESSION: 1. UNDESIRED PORT. PLAN: Portal removal with Dr. Wallace French. As Dictated By Neena Youssef NP
[~2020-05-05 08:59] MED LIST changes: +Lactated Ringers 1,000 ML IV ONE; +Sodium Chloride 0.9% 1000 ML 1,000 ML IV SCH; -XYLOCAINE 1% HCL 20 ML MDV ONE
[2020-05-05] MEDS ORDERED: Lactated Ringers 1,000 ML IV SCH (09:00)
[2020-05-05] MEDS ORDERED: DEMEROL 50 MG IJ ONE (09:00)
[2020-05-05 12:16] VITALS: BP 131/89; PULSE 86; O2SAT 94
--- NOTE | 2020-05-05 14:08 | OP ---
SURGERY DATE/TIME: 05/05/2020 1115 PREOPERATIVE DIAGNOSIS: Undesired Port-A-Cath. POSTOPERATIVE DIAGNOSIS: Undesired Port-A-Cath. PROCEDURE: Port removal. SURGEON: Wallace French M.D. ANESTHESIA: Local, IV sedation. COMPLICATIONS: None. CONDITION: Stable. INDICATION: A patient requiring port removal. DESCRIPTION OF PROCEDURE: Taken to surgery. Routine prep and drape. IV sedation titrated. Oximeter monitored, oximeter kept over 90%, 15 minutes. The catheter totally removed. The port totally removed. One bleeder 3-0 Vicryl. Subcu 3-0 Vicryl. Skin closed with 4-0 Vicryl. Steri-Strips applied. Sterile dressing applied. The patient tolerated the procedure satisfactorily. The patient tolerated the sedation satisfactorily.
== END 2020-05-05 12:29 | disposition home or self-care (01) ==
LOC: SDC 08:59
PROVIDERS: ATTEND Surgery
DX: Z45.2 Encounter for adjustment and management of vascular access device (principal); Z85.038 Personal history of other malignant neoplasm of large intestine; Z79.899 Other long term (current) drug therapy
CPT/HCPCS: J2001; J2175

== ENCOUNTER 2024-04-21 09:11 | Day surgery (SDC) | payer MEDICARE, OTHER ==
[2024-04-21] MEDS ORDERED: Sodium Chloride 0.9% 10 ML FLUSH Syringe IJ ONE (09:15)
[2024-04-21 10:38] VITALS: RESP 16
[2024-04-21] MEDS: TETRACAINE 0.5% STERI-UNIT SOL OP ONE ×2 (10:51→11:21)
[2024-04-21] MEDS: Ak-Dilate OPHTHALMIC*** 1.065 ML, Cyclogyl 1% OPHTH SOL 1.065 ML, GATIFLOXACIN 0.5% OPH... OP ONE (10:52)
[2024-04-21 11:06] LABS: Absolute Neutrophil Ct (ANC) 5.96 x10^3/uL (1.56-6.13); BASOPHIL % 1.3 % (0.1-1.2); Eosinophil % 3.7 % (0.7-5.8); Eosinophil (Absolute #) 0.29 x10^3/uL (0.04-0.36); Hematocrit 39.3 % (34.1-44.9); Hemoglobin 13.5 g/dL (11.2-15.7); IMMATURE GRAN # 0.02 x10^3u/L (0.001-0.031); IMMATURE GRAN % 0.3 % (0.001-0.429); Lymphocyte (Absolute #) 0.99 x10^3/uL (1.18-3.74); Lymphocytes % 12.7 % (19.3-51.7); Mean Cell Volume 95.4 fL (79.4-94.8); Mean Corpuscular Hemoglobin 32.8 pg (25.6-32.2); Mean Corpuscular Hgb Concent. 34.4 g/dL (32.2-35.5); Mean Platelet Volume 9.3 fL (9.4-12.3); Monocyte (Absolute #) 0.46 x10^3/uL (0.24-0.86); Monocytes % 5.9 % (4.7-12.5); Neutrophil % 76.1 % (34.0-71.1); Platelet Count 231 x10^3/uL (182-369); Red Blood Count 4.12 x10^6/uL (3.93-5.22); Red Cell Distribution Width 11.9 % (11.7-14.4); White Blood Count 7.8 x10^3/uL (3.98-10.04)
[2024-04-21] MEDS ORDERED: TRIAMCINOLONE 15 MG/ML INJ INTRAOP ONE (11:15)
[2024-04-21] MEDS ORDERED: VIGAMOX/BSS 0.15% SYR IO ONE (11:15)
[2024-04-21] MEDS ORDERED: BETADINE 5% OPHTHALMIC 30 ML OP ONE (11:15)
[2024-04-21] MEDS ORDERED: Epinephrine Preservative Free 1 MG/ML IJ ONE (11:15)
[2024-04-21] MEDS ORDERED: Zofran 4 MG/2 ML VIAL IV PRN (11:15)
[2024-04-21 11:31] LABS: ANION GAP 13.6 MEQ/L (5-15); Calcium 9.5 mg/dL (8.4-10.2); Creatinine 1 1.06 mg/dL (0.52-1.04); EST GLOMERULAR FILTRATION RATE 56.9 ML/MIN; Potassium 4.1 mmol/L (3.5-5.1)
[2024-04-21] MEDS ORDERED: DIPRIVAN 200 MG/20 ML IV ONE (12:30)
[2024-04-21] MEDS ORDERED: ROBINUL ONE (12:35)
[2024-04-21] MEDS: ACETAZOLAMIDE 250 MG TABLET PO ONE (13:00)
[2024-04-21 13:05] VITALS: BP 107/91; PULSE 100; TEMP 98.5; O2SAT 95
== END 2024-04-21 13:15 | disposition home or self-care (01) ==
LOC: SDC 09:11
PROVIDERS: ATTEND Ophthalmology
DX: H25.811 Combined forms of age-related cataract, right eye (principal); J44.9 Chronic obstructive pulmonary disease, unspecified
CPT/HCPCS: 36415; 80048; 85025; 93005; C1780; J0171; J2704; A9270-GY